=== PATIENT | male | born 1970 | race Caucasian/White ===

== ENCOUNTER 2021-02-22 09:23 | Inpatient (IN) ==
[2021-02-22 10:32] LABS: Hematocrit 42.5 VOL% (42.0-52.0); Hemoglobin 14.5 GM/DL (14.0-18.0); Immature Granulocytes % 0.3 %; Immature Granulocytes Absolute 0.02 #; Lymphocytes # 0.6 10*3/uL (1.4-4.0); Lymphocytes % 8.5 % (21.2-54.2); Mean Corpuscular HGB Conc 34.1 GM/DL (32-36); Mean Corpuscular Volume 91.2 FL (87-102); Mean Platelet Volume 9.6 FL (9.6-12.0); Monocytes % 5.7 % (1.7-12.7); Neutrophils % 85.5 % (38.7-73.9); Platelet Count 270 T/CUMM (130-400); Red Blood Count 4.66 MC/CUMM (3.8-5.5); Red Cell Distribution Width 12.2 % (9.3-17.3); White Blood Count 7.1 T/CUMM (4-12)
[2021-02-22] MEDS ORDERED: DEXAMETHASONE 4 MG/1 ML VIAL IV STA (10:39)
[2021-02-22 10:46] LABS: INR 1.1; PT Patient Result 11.7 SECS (10.5-12.0); Partial Thromboplastin Time 34.2 SECS (23.9-33.8)
[2021-02-22 10:50] LABS: Albumin 2.8 G/DL (3.4-5.0); Bilirubin,Total 0.4 MG/DL (0.20-1.00); Calcium 8.2 MG/DL (8.5-10.1); Osmolality,Calculated 275.1 MOS/KG (273-304); Potassium 4.4 MMOL/L (3.5-5.1)
[2021-02-22 11:05] LABS: Ferritin 895.9 ng/ml (26-388)
[2021-02-22] MEDS ORDERED: CASIRIVIMAB/IMDEVIMAB 1,200 MG in SODIUM CHLORIDE 0.9% 100 ML IV ONE (11:45)
[2021-02-22] MEDS ORDERED: DEXAMETHASONE 4 MG TABLET PO ONE (12:00)
[2021-02-22] MEDS ORDERED: SODIUM CHLORIDE 0.9% 200 ML IV SCH (12:00)
[2021-02-22] MEDS ORDERED: ACETAMINOPHEN 325 MG TABLET PO PRN (12:00)
[2021-02-22] MEDS ORDERED: ONDANSETRON 4 MG/2 ML VIAL IV PRN ×2 (12:00→14:23)
[2021-02-22] MEDS ORDERED: diphenhydrAMINE 50 MG/1 ML VIAL IV PRN ×2 (12:00)
[2021-02-22] MEDS ORDERED: MECLIZINE 25 MG TABLET PO PRN (12:00)
[2021-02-22] MEDS ORDERED: methylPREDNISolone SOD SUC 125 MG/2 ML VIAL IV PRN (12:00)
[2021-02-22] MEDS: SODIUM CHLORIDE 0.9% 1,000 ML IV SCH ×2 (13:00→14:30)
[2021-02-22] MEDS ORDERED: PHENYTOIN ER 100 MG CAPSULE PO STA (13:40)
[2021-02-22] MEDS ORDERED: DEXTROSE 50% 25 GM/50 ML VIAL IV PRN (14:21)
[2021-02-22] MEDS ORDERED: GLUCAGON 1 MG VIAL IM PRN (14:21)
[2021-02-22] MEDS ORDERED: BISACODYL 5 MG TABLET PO PRN (14:23)
[2021-02-22] MEDS ORDERED: guaiFENesin/DM ER 600-30 MG TABLET PO PRN (14:23)
[2021-02-22] MEDS ORDERED: MELATONIN 3 MG TABLET PO PRN (14:24)
[2021-02-22] MEDS ORDERED: AZITHROMYCIN INJ 500 MG in SODIUM CHLORIDE 0.9% 250 ML IV ONE (14:24)
[2021-02-22 15:09] VITALS: BP 131/79
[2021-02-22 17:54] LABS: Barbiturates Screen,Urine Negative (Negative); Benzodiazepines Screen,Urine Negative (Negative); Cannabinoid Screen,Urine Negative (Negative); Opiate Screen,Urine Negative (Negative); Phencyclidine Screen,Urine Negative (Negative)
[2021-02-22 18:06] LABS: Bilirubin,Urine Negative (Negative); Blood, Urine Negative (Negative); Glucose,Urine (UA) Negative (Negative); Hyaline Casts,Urine 1 /LPF (0-3); Ketones,Urine 5 mg/dL (Negative); Mucus,Urine Occasional /LPF (Occasional); Nitrite,Urine Negative (Negative); Protein,Urine >=500 MG/DL; RBC,Urine 1 /HPF (0-4); Squamous Epithelial Cell,Urine Occasional /HPF (0-10); Urine Appearance Slightly Hazy (Clear); Urine Color Amber (Yellow); Urine Specific Gravity 1.028 (1.001-1.035); Urine Urobilinogen < 2.0 EU/DL (0.2-1.0)
[2021-02-22] MEDS: ENOXAPARIN 40 MG/0.4 ML SYRINGE SUBCUT SCH (18:18)
[2021-02-22] MEDS: FAMOTIDINE 20 MG TABLET PO SCH (20:41)
[2021-02-22] MEDS: ALPRAZolam 0.5 MG TABLET PO PRN (20:41)
[2021-02-22] MEDS: traZODone 50 MG TABLET PO PRN (20:41)
[2021-02-22] MEDS: ASCORBIC ACID 500 MG TABLET PO SCH (20:41)
[2021-02-23] MEDS: SODIUM CHLORIDE 0.9% 1,000 ML IV SCH ×5 (01:03→21:06)
[2021-02-23] MEDS: ENOXAPARIN 40 MG/0.4 ML SYRINGE SUBCUT SCH ×2 (05:59→17:20)
[2021-02-23 06:30] LABS: Hemoglobin 13.3 GM/DL (14.0-18.0); Immature Granulocytes % 0.9 %; Immature Granulocytes Absolute 0.09 #; Lymphocytes # 0.7 10*3/uL (1.4-4.0); Lymphocytes % 7.5 % (21.2-54.2); Mean Corpuscular HGB Conc 34.1 GM/DL (32-36); Mean Corpuscular Volume 91.8 FL (87-102); Mean Platelet Volume 9.8 FL (9.6-12.0); Neutrophils % 87.6 % (38.7-73.9); Platelet Count 278 T/CUMM (130-400); Red Blood Count 4.25 MC/CUMM (3.8-5.5); Red Cell Distribution Width 12.2 % (9.3-17.3); White Blood Count 9.8 T/CUMM (4-12)
[2021-02-23 06:58] LABS: Calcium 8.1 MG/DL (8.5-10.1); Osmolality,Calculated 269.4 MOS/KG (273-304)
[2021-02-23 07:05] LABS: Ferritin 1352.5 ng/ml (26-388)
[2021-02-23] MEDS: DEXAMETHASONE 4 MG/1 ML VIAL IV SCH (08:29)
[2021-02-23] MEDS: CHOLECALCIFEROL 1,000 UNIT TABLET PO SCH (08:29)
[2021-02-23] MEDS: ZINC GLUCONATE 50 MG TABLET PO SCH (08:29)
[2021-02-23] MEDS: FAMOTIDINE 20 MG TABLET PO SCH ×2 (08:30→21:06)
[2021-02-23] MEDS: ASCORBIC ACID 500 MG TABLET PO SCH ×2 (08:30→21:06)
[2021-02-23] MEDS: AZITHROMYCIN 250 MG TABLET PO SCH (08:32)
[2021-02-23] MEDS ORDERED: PHENYTOIN ER 100 MG CAPSULE PO SCH (09:00)
[2021-02-23] MEDS: ALPRAZolam 0.5 MG TABLET PO PRN (10:16)
[2021-02-23] MEDS ORDERED: LORATADINE 10 MG TABLET PO PRN (12:48)
[2021-02-23] MEDS ORDERED: valACYclovir 500 MG TABLET PO SCH (15:00)
[2021-02-23] MEDS: atenoloL 50 MG TABLET PO SCH ×2 (16:21→21:06)
[2021-02-23] MEDS: DULoxetine 30 MG CAPSULE PO SCH (16:26)
[2021-02-23] MEDS: PHENYTOIN ER 100 MG CAPSULE PO SCH ×2 (16:28→21:06)
[2021-02-23] MEDS: clonazePAM 0.5 MG TABLET PO PRN (16:28)
[2021-02-23] MEDS: amLODIPine 5 MG TABLET PO SCH (16:29)
[2021-02-24] MEDS: ALPRAZolam 0.5 MG TABLET PO PRN ×3 (00:38→21:30)
[2021-02-24] MEDS ORDERED: oxyCODONE/ACETAMINOPHEN 5-325 MG TABLET PO ONE (03:00)
[2021-02-24] MEDS: traZODone 50 MG TABLET PO PRN (03:40)
[2021-02-24 04:11] LABS: Eosinophils % 0.1 % (0.00-10.9); Hematocrit 37.8 VOL% (42.0-52.0); Hemoglobin 12.9 GM/DL (14.0-18.0); Immature Granulocytes % 0.6 %; Immature Granulocytes Absolute 0.04 #; Lymphocytes # 0.8 10*3/uL (1.4-4.0); Lymphocytes % 11.3 % (21.2-54.2); Mean Corpuscular HGB Conc 34.1 GM/DL (32-36); Mean Corpuscular Volume 92.4 FL (87-102); Mean Platelet Volume 9.2 FL (9.6-12.0); Monocytes % 3.9 % (1.7-12.7); Neutrophils % 84.1 % (38.7-73.9); Platelet Count 307 T/CUMM (130-400); Red Blood Count 4.09 MC/CUMM (3.8-5.5); Red Cell Distribution Width 12.3 % (9.3-17.3); White Blood Count 7.2 T/CUMM (4-12)
[2021-02-24 04:26] LABS: Calcium 8.2 MG/DL (8.5-10.1); Osmolality,Calculated 269.4 MOS/KG (273-304); Potassium 3.9 MMOL/L (3.5-5.1)
[2021-02-24] MEDS: ENOXAPARIN 40 MG/0.4 ML SYRINGE SUBCUT SCH ×2 (06:06→19:12)
[2021-02-24] MEDS: PHENYTOIN ER 100 MG CAPSULE PO SCH ×3 (08:16→20:34)
[2021-02-24] MEDS: DEXAMETHASONE 4 MG/1 ML VIAL IV SCH (08:16)
[2021-02-24] MEDS: AZITHROMYCIN 250 MG TABLET PO SCH (08:16)
[2021-02-24] MEDS: DULoxetine 30 MG CAPSULE PO SCH (08:16)
[2021-02-24] MEDS: ZINC GLUCONATE 50 MG TABLET PO SCH (08:16)
[2021-02-24] MEDS: ASCORBIC ACID 500 MG TABLET PO SCH ×2 (08:17→20:34)
[2021-02-24] MEDS: atenoloL 50 MG TABLET PO SCH ×2 (08:17→20:33)
[2021-02-24] MEDS: amLODIPine 5 MG TABLET PO SCH (08:17)
[2021-02-24] MEDS: CHOLECALCIFEROL 1,000 UNIT TABLET PO SCH (08:17)
[2021-02-24] MEDS: FAMOTIDINE 20 MG TABLET PO SCH ×2 (08:17→20:34)
[2021-02-24] MEDS: SODIUM CHLORIDE 0.9% 1,000 ML IV SCH (08:56)
[2021-02-24] MEDS: clonazePAM 0.5 MG TABLET PO PRN (13:27)
[2021-02-24] MEDS ORDERED: guaiFENesin 200 MG/10 ML UDCUP PO PRN (15:31)
[2021-02-24] MEDS ORDERED: MORPHINE 2 MG/1 ML SYRINGE IV ONE (17:58)
[2021-02-24] MEDS ORDERED: LORazepam 2 MG/1 ML VIAL IV PRN (18:10)
[2021-02-24] MEDS ORDERED: ETOMIDATE 20 MG/10 ML VIAL IV ONE ×2 (21:35→22:12)
[2021-02-24] MEDS ORDERED: VECURONIUM 10 MG VIAL IV ONE ×2 (21:35→22:12)
[2021-02-24 21:45] LABS: ABG Base Excess -3.4 MMOL/L (-2.5-2.5); ABG HCO3 21.3 MMOL/L (20-26); ABG Oxygen Saturation 83.1 % (95-100); ABG PCO2 29.8 MM HG (35-48); ABG PH 7.429 (7.35-7.45); ABG PO2 47.6 MM HG (80-95); ABG TCO2 17.2 MMOL/L (23-27)
[2021-02-24] MEDS ORDERED: hydrALAZINE 20 MG/1 ML VIAL IV PRN (22:42)
[2021-02-24 23:18] LABS: ABG Base Excess -6.3 MMOL/L (-2.5-2.5); ABG HCO3 19.2 MMOL/L (20-26); ABG Oxygen Saturation 93.2 % (95-100); ABG PCO2 42.1 MM HG (35-48); ABG PO2 77.7 MM HG (80-95); ABG TCO2 17.5 MMOL/L (23-27)
[2021-02-24] MEDS: MIDAZOLAM 100 MG in SODIUM CHLORIDE 0.9% 80 ML IV PRN (23:20)
[2021-02-25] MEDS ORDERED: ROCURONIUM 500 MG in SODIUM CHLORIDE 0.9% 500 ML IV PRN (00:29)
[2021-02-25 04:40] LABS: ABG Base Excess -4.1 MMOL/L (-2.5-2.5); ABG Oxygen Saturation 97.3 % (95-100); ABG PCO2 33.3 MM HG (35-48); ABG PH 7.387 (7.35-7.45); ABG PO2 95.4 MM HG (80-95); ABG TCO2 17.5 MMOL/L (23-27); Allen Test Positive; Pt O2 Delivery Device Ventilator
[2021-02-25] MEDS: fentaNYL INJ 1,250 MCG in SODIUM CHLORIDE 0.9% 225 ML IV PRN ×2 (05:30→18:05)
[2021-02-25 06:14] LABS: Basophils % 0.2 % (0.0-0.8); Eosinophils % 0.1 % (0.00-10.9); Hemoglobin 12.8 GM/DL (14.0-18.0); Immature Granulocytes % 0.9 %; Immature Granulocytes Absolute 0.11 #; Lymphocytes # 0.7 10*3/uL (1.4-4.0); Lymphocytes % 5.4 % (21.2-54.2); Mean Corpuscular HGB Conc 34.6 GM/DL (32-36); Mean Corpuscular Volume 91.6 FL (87-102); Mean Platelet Volume 9.7 FL (9.6-12.0); Monocytes % 4.2 % (1.7-12.7); Neutrophils % 89.2 % (38.7-73.9); Platelet Count 379 T/CUMM (130-400); Red Blood Count 4.04 MC/CUMM (3.8-5.5); Red Cell Distribution Width 12.3 % (9.3-17.3); White Blood Count 12.3 T/CUMM (4-12)
[2021-02-25] MEDS: ENOXAPARIN 40 MG/0.4 ML SYRINGE SUBCUT SCH ×2 (06:29→17:21)
[2021-02-25 06:59] LABS: Albumin 1.9 G/DL (3.4-5.0); Bilirubin,Total 0.7 MG/DL (0.20-1.00); Calcium 8.2 MG/DL (8.5-10.1); Ferritin 1083.9 ng/ml (26-388); Osmolality,Calculated 266.4 MOS/KG (273-304); Total Protein 6.3 G/DL (6.4-8.2)
[2021-02-25] MEDS: DEXAMETHASONE 4 MG/1 ML VIAL IV SCH ×3 (08:24→20:19)
[2021-02-25] MEDS: DULoxetine 30 MG CAPSULE PO SCH (08:24)
[2021-02-25] MEDS: AZITHROMYCIN 250 MG TABLET PO SCH (08:24)
[2021-02-25] MEDS: FAMOTIDINE 20 MG TABLET PO SCH ×2 (08:25→20:18)
[2021-02-25] MEDS: ZINC GLUCONATE 50 MG TABLET PO SCH (08:25)
[2021-02-25] MEDS: CHOLECALCIFEROL 1,000 UNIT TABLET PO SCH (08:25)
[2021-02-25] MEDS: ASCORBIC ACID 500 MG TABLET PO SCH ×2 (08:25→20:18)
[2021-02-25] MEDS: amLODIPine 5 MG TABLET PO SCH (08:25)
[2021-02-25] MEDS: PHENYTOIN ER 100 MG CAPSULE PO SCH (08:25)
[2021-02-25] MEDS: atenoloL 50 MG TABLET PO SCH ×2 (08:25→20:18)
[2021-02-25] MEDS: MIDAZOLAM 100 MG in SODIUM CHLORIDE 0.9% 80 ML IV PRN ×2 (09:42→19:35)
[2021-02-25] MEDS: PHENYTOIN 100 MG/4 ML UDCUP PO SCH ×3 (10:50→20:19)
[2021-02-25] MEDS ORDERED: ALBUMIN 5% 25 GM/500 ML VIAL IV SCH (14:00)
[2021-02-25] MEDS: cefTRIAXone 1,000 MG in SODIUM CHLORIDE 0.9% 100 ML IV SCH (18:06)
[2021-02-25] MEDS: ALBUMIN 25% 25 GM/100 ML VIAL IV SCH ×2 (18:06→21:32)
[2021-02-25] MEDS: FUROSEMIDE 20 MG/2 ML VIAL IV SCH ×2 (19:21→22:31)
[2021-02-25] MEDS: ACETAMINOPHEN 325 MG TABLET PO PRN (20:18)
[2021-02-26] MEDS: ALBUMIN 25% 25 GM/100 ML VIAL IV SCH ×6 (01:27→20:46)
[2021-02-26] MEDS: FUROSEMIDE 20 MG/2 ML VIAL IV SCH ×5 (02:42→20:03)
[2021-02-26] MEDS: DEXAMETHASONE 4 MG/1 ML VIAL IV SCH ×2 (02:43→08:09)
[2021-02-26 04:27] LABS: Basophils % 0.1 % (0.0-0.8); Hematocrit 31.8 VOL% (42.0-52.0); Hemoglobin 10.5 GM/DL (14.0-18.0); Immature Granulocytes % 1.2 %; Immature Granulocytes Absolute 0.15 #; Lymphocytes # 0.4 10*3/uL (1.4-4.0); Lymphocytes % 2.8 % (21.2-54.2); Mean Corpuscular Volume 94.4 FL (87-102); Mean Platelet Volume 9.4 FL (9.6-12.0); Monocytes % 3.3 % (1.7-12.7); Neutrophils % 92.6 % (38.7-73.9); Platelet Count 391 T/CUMM (130-400); Red Blood Count 3.37 MC/CUMM (3.8-5.5); Red Cell Distribution Width 12.2 % (9.3-17.3)
[2021-02-26 04:53] LABS: Albumin 2.6 G/DL (3.4-5.0); Bilirubin,Total 0.7 MG/DL (0.20-1.00); Calcium 8.5 MG/DL (8.5-10.1); Osmolality,Calculated 275.2 MOS/KG (273-304); Potassium 4.3 MMOL/L (3.5-5.1); Total Protein 6.7 G/DL (6.4-8.2)
[2021-02-26 05:06] LABS: Allen Test Positive; Pt O2 Delivery Device Ventilator
[2021-02-26 05:07] LABS: ABG Base Excess -3.5 MMOL/L (-2.5-2.5); ABG HCO3 21.6 MMOL/L (20-26); ABG Oxygen Saturation 99.4 % (95-100); ABG PCO2 43.9 MM HG (35-48); ABG TCO2 20.4 MMOL/L (23-27)
[2021-02-26] MEDS: ENOXAPARIN 40 MG/0.4 ML SYRINGE SUBCUT SCH ×2 (05:35→18:23)
[2021-02-26 06:44] LABS: Lymphocytes 4 % (20-55); Segmented Neutrophils 95 % (50-85); Total Cells Counted 100
[2021-02-26 06:45] LABS: Microcytosis 2+; Platelet Estimate Increased
[2021-02-26] MEDS: PHENYTOIN 100 MG/4 ML UDCUP PO SCH ×3 (08:08→20:42)
[2021-02-26] MEDS: atenoloL 50 MG TABLET PO SCH ×2 (08:08→20:43)
[2021-02-26] MEDS: CHOLECALCIFEROL 1,000 UNIT TABLET PO SCH (08:09)
[2021-02-26] MEDS: FAMOTIDINE 20 MG TABLET PO SCH ×2 (08:09→20:43)
[2021-02-26] MEDS: ASCORBIC ACID 500 MG TABLET PO SCH ×2 (08:09→20:42)
[2021-02-26] MEDS: AZITHROMYCIN 250 MG TABLET PO SCH (08:09)
[2021-02-26] MEDS: ZINC GLUCONATE 50 MG TABLET PO SCH (08:09)
[2021-02-26] MEDS: DULoxetine 30 MG CAPSULE PO SCH (08:11)
[2021-02-26] MEDS: MIDAZOLAM 100 MG in SODIUM CHLORIDE 0.9% 80 ML IV PRN ×2 (08:40→17:35)
[2021-02-26] MEDS: fentaNYL INJ 1,250 MCG in SODIUM CHLORIDE 0.9% 225 ML IV PRN ×2 (08:40→21:30)
[2021-02-26] MEDS: cefTRIAXone 1,000 MG in SODIUM CHLORIDE 0.9% 100 ML IV SCH (17:55)
[2021-02-27] MEDS: FUROSEMIDE 20 MG/2 ML VIAL IV SCH ×3 (01:50→06:35)
[2021-02-27] MEDS: ALBUMIN 25% 25 GM/100 ML VIAL IV SCH ×4 (02:32→18:05)
[2021-02-27 03:54] LABS: ABG HCO3 24.4 MMOL/L (20-26); ABG Oxygen Saturation 93.8 % (95-100); ABG PCO2 40.8 MM HG (35-48); ABG PH 7.394 (7.35-7.45); ABG PO2 67.5 MM HG (80-95); ABG TCO2 22.4 MMOL/L (23-27)
[2021-02-27 04:35] LABS: Basophils % 0.1 % (0.0-0.8); Eosinophils # 0.1 10*3/uL (0.0-0.87); Eosinophils % 0.7 % (0.00-10.9); Hematocrit 29.7 VOL% (42.0-52.0); Hemoglobin 9.9 GM/DL (14.0-18.0); Immature Granulocytes % 2.2 %; Immature Granulocytes Absolute 0.28 #; Lymphocytes # 0.8 10*3/uL (1.4-4.0); Lymphocytes % 5.9 % (21.2-54.2); Mean Corpuscular HGB Conc 33.3 GM/DL (32-36); Mean Corpuscular Volume 94.3 FL (87-102); Mean Platelet Volume 9.5 FL (9.6-12.0); Monocytes % 5.3 % (1.7-12.7); Neutrophils % 85.8 % (38.7-73.9); Platelet Count 488 T/CUMM (130-400); Red Blood Count 3.15 MC/CUMM (3.8-5.5); Red Cell Distribution Width 12.4 % (9.3-17.3); White Blood Count 12.6 T/CUMM (4-12)
[2021-02-27] MEDS: MIDAZOLAM 100 MG in SODIUM CHLORIDE 0.9% 80 ML IV PRN ×2 (04:37→15:49)
[2021-02-27 05:06] LABS: Calcium 8.5 MG/DL (8.5-10.1); Osmolality,Calculated 284.4 MOS/KG (273-304); Potassium 3.4 MMOL/L (3.5-5.1)
[2021-02-27] MEDS: ENOXAPARIN 40 MG/0.4 ML SYRINGE SUBCUT SCH ×2 (05:37→18:33)
[2021-02-27] MEDS: ALPRAZolam 0.5 MG TABLET PO PRN (07:20)
[2021-02-27] MEDS: fentaNYL INJ 1,250 MCG in SODIUM CHLORIDE 0.9% 225 ML IV PRN (08:28)
[2021-02-27] MEDS: atenoloL 50 MG TABLET PO SCH ×2 (09:12→20:57)
[2021-02-27] MEDS: DULoxetine 30 MG CAPSULE PO SCH (09:12)
[2021-02-27] MEDS: CHOLECALCIFEROL 1,000 UNIT TABLET PO SCH (09:12)
[2021-02-27] MEDS: FAMOTIDINE 20 MG TABLET PO SCH ×2 (09:12→20:58)
[2021-02-27] MEDS: ASCORBIC ACID 500 MG TABLET PO SCH ×2 (09:12→20:58)
[2021-02-27] MEDS: ZINC GLUCONATE 50 MG TABLET PO SCH (09:13)
[2021-02-27] MEDS: PHENYTOIN 100 MG/4 ML UDCUP PO SCH ×3 (09:16→20:57)
[2021-02-27] MEDS: POTASSIUM BICARB EFFERVESCENT 20 MEQ TAB.EFF PO PRN ×3 (09:19→16:53)
[2021-02-27] MEDS ORDERED: POTASSIUM PHOSPHATE 30 MMOL in SODIUM CHLORIDE 0.9% 250 ML IV ONE (10:00)
[2021-02-27] MEDS: FUROSEMIDE 40 MG/4 ML VIAL IV SCH ×2 (10:43→18:34)
[2021-02-27] MEDS: fentaNYL INJ 2,500 MCG in SODIUM CHLORIDE 0.9% 75 ML IV PRN ×2 (15:45→23:45)
[2021-02-27] MEDS: LORazepam 2 MG/1 ML VIAL IV PRN ×2 (15:59→23:15)
[2021-02-27] MEDS ORDERED: ALBUMIN 25% 25 GM/100 ML VIAL IV SCH (18:00)
[2021-02-27] MEDS ORDERED: FUROSEMIDE 40 MG/4 ML VIAL IV SCH (18:00)
[2021-02-27] MEDS: cefTRIAXone 1,000 MG in SODIUM CHLORIDE 0.9% 100 ML IV SCH (19:12)
[2021-02-28] MEDS: ALPRAZolam 0.5 MG TABLET PO PRN (00:35)
[2021-02-28] MEDS ORDERED: ROCURONIUM 100 MG/10 ML VIAL IV ONE ×2 (01:17→01:20)
[2021-02-28] MEDS: LORazepam 2 MG/1 ML VIAL IV PRN (03:00)
[2021-02-28] MEDS: ROCURONIUM 500 MG in SODIUM CHLORIDE 0.9% 500 ML IV PRN ×3 (03:15→23:58)
[2021-02-28 03:33] LABS: ABG PH 7.329 (7.35-7.45)
[2021-02-28 03:34] LABS: ABG Base Excess -1.2 MMOL/L (-2.5-2.5); ABG HCO3 25.1 MMOL/L (20-26); ABG Oxygen Saturation 82.4 % (95-100); ABG PCO2 48.8 MM HG (35-48); ABG PO2 50.7 MM HG (80-95); ABG TCO2 26.6 MMOL/L (23-27)
[2021-02-28 04:20] LABS: Calcium 8.4 MG/DL (8.5-10.1); Osmolality,Calculated 284.4 MOS/KG (273-304); Potassium 4.1 MMOL/L (3.5-5.1)
[2021-02-28 04:33] LABS: Basophils % 0.2 % (0.0-0.8); Eosinophils # 0.2 10*3/uL (0.0-0.87); Eosinophils % 1.3 % (0.00-10.9); Hematocrit 30.7 VOL% (42.0-52.0); Hemoglobin 10.1 GM/DL (14.0-18.0); Immature Granulocytes % 6.2 %; Immature Granulocytes Absolute 0.98 #; Lymphocytes # 0.9 10*3/uL (1.4-4.0); Lymphocytes % 5.8 % (21.2-54.2); Mean Corpuscular HGB Conc 32.9 GM/DL (32-36); Mean Corpuscular Volume 96.5 FL (87-102); Mean Platelet Volume 9.6 FL (9.6-12.0); Monocytes % 5.5 % (1.7-12.7); Platelet Count 340 T/CUMM (130-400); Red Blood Count 3.18 MC/CUMM (3.8-5.5); Red Cell Distribution Width 12.7 % (9.3-17.3); White Blood Count 15.9 T/CUMM (4-12)
[2021-02-28] MEDS: MIDAZOLAM 100 MG in SODIUM CHLORIDE 0.9% 80 ML IV PRN ×2 (04:50→17:31)
[2021-02-28 05:02] LABS: Band Neutrophils 2 % (0-10); Eosinophils 1 % (0-10); Hypochromasia Slight; Lymphocytes 4 % (20-55); Microcytosis 1+; Nucleated Red Blood Cells 1 (0-5); Platelet Estimate Normal; Segmented Neutrophils 92 % (50-85); Total Cells Counted 100
[2021-02-28] MEDS: fentaNYL INJ 2,500 MCG in SODIUM CHLORIDE 0.9% 75 ML IV PRN ×3 (06:50→20:50)
[2021-02-28] MEDS: ENOXAPARIN 40 MG/0.4 ML SYRINGE SUBCUT SCH (07:00)
[2021-02-28] MEDS: ENOXAPARIN 120 MG/0.8 ML SYRINGE SUBCUT SCH ×2 (09:26→20:17)
[2021-02-28] MEDS: ASCORBIC ACID 500 MG TABLET PO SCH ×2 (09:27→20:17)
[2021-02-28] MEDS: PHENYTOIN 100 MG/4 ML UDCUP PO SCH ×3 (09:27→21:27)
[2021-02-28] MEDS: FAMOTIDINE 20 MG TABLET PO SCH ×2 (09:27→20:17)
[2021-02-28] MEDS: DULoxetine 30 MG CAPSULE PO SCH (09:27)
[2021-02-28] MEDS: CHOLECALCIFEROL 1,000 UNIT TABLET PO SCH (09:27)
[2021-02-28] MEDS: ZINC GLUCONATE 50 MG TABLET PO SCH (09:28)
[2021-02-28] MEDS: atenoloL 50 MG TABLET PO SCH ×2 (09:28→20:18)
[2021-02-28] MEDS: ACETAMINOPHEN 325 MG TABLET PO PRN (10:00)
[2021-02-28] MEDS ORDERED: LACTATED RINGERS 500 ML IV ONE ×2 (12:11→16:08)
[2021-02-28] MEDS ORDERED: BISACODYL 10 MG SUPP RECTAL ONE (16:08)
[2021-02-28] MEDS: cefTRIAXone 1,000 MG in SODIUM CHLORIDE 0.9% 100 ML IV SCH (17:29)
[2021-02-28] MEDS: NOREPINEPHRINE 8 MG in SODIUM CHLORIDE 0.9% 242 ML IV PRN (19:00)
[2021-03-01] MEDS: MIDAZOLAM 100 MG in SODIUM CHLORIDE 0.9% 80 ML IV PRN (04:40)
[2021-03-01 05:12] LABS: ABG Base Excess -9.1 MMOL/L (-2.5-2.5); ABG Oxygen Saturation 86.2 % (95-100); ABG PO2 60.5 MM HG (80-95); ABG TCO2 19.9 MMOL/L (23-27); Allen Test Positive; Pt O2 Delivery Device Ventilator
[2021-03-01 05:30] LABS: Basophils % 0.1 % (0.0-0.8); Eosinophils # 0.2 10*3/uL (0.0-0.87); Eosinophils % 0.9 % (0.00-10.9); Hematocrit 33.4 VOL% (42.0-52.0); Hemoglobin 10.5 GM/DL (14.0-18.0); Immature Granulocytes Absolute 0.81 #; Lymphocytes % 4.8 % (21.2-54.2); Mean Corpuscular HGB Conc 31.4 GM/DL (32-36); Mean Corpuscular Volume 100.6 FL (87-102); Mean Platelet Volume 10.4 FL (9.6-12.0); Monocytes % 5.7 % (1.7-12.7); NRBC # 0.02 10*3/uL; Neutrophils % 84.5 % (38.7-73.9); Platelet Count 402 T/CUMM (130-400); Red Blood Count 3.32 MC/CUMM (3.8-5.5); Red Cell Distribution Width 13.4 % (9.3-17.3); White Blood Count 20.2 T/CUMM (4-12)
[2021-03-01 05:35] LABS: ABG PH 7.131 (7.35-7.45)
[2021-03-01] MEDS ORDERED: SODIUM BICARBONATE 50 MEQ/50 ML VIAL IV ONE (05:38)
[2021-03-01 05:52] LABS: Band Neutrophils 1 % (0-10); Hypochromasia 1+; Lymphocytes 2 % (20-55); Microcytosis 1+; Platelet Estimate Adequate; Segmented Neutrophils 90 % (50-85); Total Cells Counted 100
[2021-03-01 05:57] LABS: Calcium 8.4 MG/DL (8.5-10.1); Osmolality,Calculated 288.8 MOS/KG (273-304); Potassium 5.1 MMOL/L (3.5-5.1)
[2021-03-01] MEDS: fentaNYL INJ 2,500 MCG in SODIUM CHLORIDE 0.9% 75 ML IV PRN (06:45)
[2021-03-01] MEDS: ENOXAPARIN 120 MG/0.8 ML SYRINGE SUBCUT SCH (08:13)
[2021-03-01] MEDS: ASCORBIC ACID 500 MG TABLET PO SCH ×2 (08:14→21:00)
[2021-03-01] MEDS: PHENYTOIN 100 MG/4 ML UDCUP PO SCH ×3 (08:14→21:00)
[2021-03-01] MEDS: ZINC GLUCONATE 50 MG TABLET PO SCH (08:14)
[2021-03-01] MEDS: DULoxetine 30 MG CAPSULE PO SCH (08:14)
[2021-03-01] MEDS: CHOLECALCIFEROL 1,000 UNIT TABLET PO SCH (08:14)
[2021-03-01] MEDS: atenoloL 50 MG TABLET PO SCH (08:15)
[2021-03-01] MEDS: FAMOTIDINE 20 MG TABLET PO SCH ×2 (08:16→10:04)
[2021-03-01] MEDS ORDERED: SODIUM BICARB INJ 100 MEQ in SODIUM CHLORIDE 0.45% 1,000 ML IV SCH (10:00)
[2021-03-01] MEDS: ROCURONIUM 1,000 MG in SODIUM CHLORIDE 0.9% 175 ML IV PRN (10:35)
[2021-03-01] MEDS: NOREPINEPHRINE 8 MG in SODIUM CHLORIDE 0.9% 242 ML IV PRN (11:16)
[2021-03-01] MEDS: cefTRIAXone 1,000 MG in SYRINGE 1 EACH IV SCH (18:51)
[2021-03-01] MEDS: SODIUM BICARB INJ 100 MEQ in SODIUM CHLORIDE 0.45% 1,000 ML IV SCH (20:55)
[2021-03-02] MEDS: NOREPINEPHRINE 16 MG in SODIUM CHLORIDE 0.9% 234 ML IV PRN ×3 (00:41→21:01)
[2021-03-02] MEDS: fentaNYL INJ 2,500 MCG in SODIUM CHLORIDE 0.9% 75 ML IV PRN ×5 (01:33→23:57)
[2021-03-02] MEDS: ACETAMINOPHEN 325 MG TABLET PO PRN ×4 (01:40→21:51)
[2021-03-02 04:21] LABS: ABG HCO3 21.3 MMOL/L (20-26); ABG Oxygen Saturation 61.1 % (95-100); ABG PCO2 68.9 MM HG (35-48); ABG TCO2 23.4 MMOL/L (23-27)
[2021-03-02 04:23] LABS: ABG PH 7.108 (7.35-7.45); ABG PO2 39.4 MM HG (80-95)
[2021-03-02 06:05] LABS: Basophils % 0.1 % (0.0-0.8); Eosinophils # 0.2 10*3/uL (0.0-0.87); Eosinophils % 0.7 % (0.00-10.9); Hematocrit 35.9 VOL% (42.0-52.0); Hemoglobin 11.3 GM/DL (14.0-18.0); Immature Granulocytes % 4.4 %; Immature Granulocytes Absolute 0.94 #; Lymphocytes # 0.7 10*3/uL (1.4-4.0); Lymphocytes % 3.3 % (21.2-54.2); Mean Corpuscular HGB Conc 31.5 GM/DL (32-36); Mean Corpuscular Volume 98.6 FL (87-102); Mean Platelet Volume 10.2 FL (9.6-12.0); Monocytes % 6.3 % (1.7-12.7); NRBC # 0.03 10*3/uL; Neutrophils % 85.2 % (38.7-73.9); Platelet Count 470 T/CUMM (130-400); Red Blood Count 3.64 MC/CUMM (3.8-5.5); Red Cell Distribution Width 13.5 % (9.3-17.3); White Blood Count 21.4 T/CUMM (4-12)
[2021-03-02] MEDS: MIDAZOLAM 100 MG in SODIUM CHLORIDE 0.9% 80 ML IV PRN ×2 (06:10→17:09)
[2021-03-02] MEDS: ROCURONIUM 1,000 MG in SODIUM CHLORIDE 0.9% 175 ML IV PRN (06:12)
[2021-03-02 06:26] LABS: Osmolality,Calculated 296.7 MOS/KG (273-304)
[2021-03-02 06:27] LABS: Band Neutrophils 2 % (0-10); Lymphocytes 5 % (20-55); Platelet Estimate Increased; Segmented Neutrophils 88 % (50-85); Total Cells Counted 100
[2021-03-02] MEDS ORDERED: SODIUM POLYSTYRENE SULFATE 15 GM/60 ML BOTTLE PO PRN (07:04)
[2021-03-02] MEDS: CHOLECALCIFEROL 1,000 UNIT TABLET PO SCH (08:14)
[2021-03-02] MEDS: PHENYTOIN 100 MG/4 ML UDCUP PO SCH ×3 (08:14→21:53)
[2021-03-02] MEDS: ASCORBIC ACID 500 MG TABLET PO SCH ×2 (08:15→21:53)
[2021-03-02] MEDS: FAMOTIDINE 20 MG TABLET PO SCH (08:15)
[2021-03-02] MEDS: ZINC GLUCONATE 50 MG TABLET PO SCH (08:15)
[2021-03-02] MEDS: DULoxetine 30 MG CAPSULE PO SCH (08:15)
[2021-03-02] MEDS: SODIUM BICARB INJ 100 MEQ in SODIUM CHLORIDE 0.45% 1,000 ML IV SCH ×2 (08:16→19:11)
[2021-03-02] MEDS ORDERED: ALBUTEROL INHALER 18 GM INH PRN (08:29)
[2021-03-02] MEDS ORDERED: ENOXAPARIN 120 MG/0.8 ML SYRINGE SUBCUT SCH (09:00)
[2021-03-02] MEDS ORDERED: atenoloL 25 MG TABLET PO SCH (09:00)
[2021-03-02 09:33] LABS: ABG Base Excess -9.8 MMOL/L (-2.5-2.5); ABG HCO3 18.8 MMOL/L (20-26); ABG Oxygen Saturation 91.2 % (95-100); ABG PCO2 52.9 MM HG (35-48); ABG PO2 72.3 MM HG (80-95); ABG TCO2 20.4 MMOL/L (23-27)
[2021-03-02 09:36] LABS: ABG PH 7.169 (7.35-7.45)
[2021-03-02] MEDS: methylPREDNISolone SOD SUC 40 MG/1 ML VIAL IV SCH ×2 (10:21→18:59)
[2021-03-02] MEDS: ALBUTEROL INHALER 18 GM INH SCH ×2 (13:34→20:25)
[2021-03-02] MEDS ORDERED: HEPARIN DRIP 25,000 UNITS/500 ML PREMIX IV SCH (15:00)
[2021-03-02] MEDS ORDERED: IBUPROFEN 400 MG TABLET PO PRN (16:34)
[2021-03-02] MEDS: cefTRIAXone 1,000 MG in SYRINGE 1 EACH IV SCH (18:57)
[2021-03-03] MEDS: ALBUTEROL INHALER 18 GM INH SCH (01:37)
[2021-03-03] MEDS: methylPREDNISolone SOD SUC 40 MG/1 ML VIAL IV SCH (01:37)
== END 2021-03-03 00:32 | disposition expired | DRG 207 ==
LOC: N.ED 09:23 → SUATTDRO 14:21 → N.EDINP 14:21 → N.CC 15:12
PROVIDERS: ADMIT Internal Medicine; ATTEND Internal Medicine